=== PATIENT | male | born 1990 | race Caucasian/White ===

== ENCOUNTER 2022-03-02 10:24 | Emergency (ER) | payer SELFPAY ==
[2022-03-02 10:24] VITALS: BP 138/79; PULSE 61; RESP 18; TEMP 36.9; O2SAT 100; BMI 29.0
--- NOTE | 2022-03-02 10:47 | HMH.EDUTC ---
[facility] [place] Disposition Clinical Impression: Encounter for screening for COVID-19 Disposition: Home, Self-Care Condition on Discharge: Good Instructions: Preventing the Spread of Coronavirus Discharge Instructions Additional Instructions: Drink plenty of fluids. Take tylenol for pain or fever. Return if you begin to have difficulty breathing. Follow up with your regular doctor. GO TO THE ER FOR ANY WORSENING SYMPTOMS Quarantine until you know the results of your covid-19 test. If it is positive, the health department should call you and give you further instructions about your length of Quarantine and other things. Notify your school or workplace of your results and follow their instructions regarding return to work/school. Referrals: Provider,Referral, [Primary Care Provider] - Time of Disposition: 10:57 Medical Decision Making - Medical Records Medical records reviewed: No: I reviewed the patient's medical records. - Richard Inquiry Pt receiving controlled substance: No Vital Signs: 03/02/22 10:24 03/02/22 11:03 Temperature 98.4 F 98.4 F Temperature Source Oral Oral Pulse Rate 61 Pulse Rate [Right Radial] 61 Respiratory Rate 18 18 Blood Pressure 138/79 Blood Pressure [Right Arm] 138/79 Blood Pressure Mean [Right Arm] 98 Blood Pressure Source Automatic Cuff Blood Pressure Source [Right Arm] Automatic Cuff Blood Pressure Position Sitting Blood Pressure Position [Right Arm] Sitting 02 Sat by Pulse Oximetry 100 Oxygen Delivery Method Room Air Room Air - Lab Data Lab Results 03/02/22 10:34: SARS-CoV-2 (PCR) Not detected, Influenza A Untype (PCR) Not detected, Influenza Type B (PCR) Not detected [facility] [place] HPI - General Stated complaint: covid test Time Seen by Provider: 03/02/22 10:51 Mode of Arrival: Ambulatory Source of Information: Patient Limitations: No Limitations Description of Symptoms (Recalled from Triage Doc. by RN): Pt is here for a PCR Covid test for surgery HEENT Symptoms (Recalled from RN notes): No Resp Symptoms (Recalled from RN notes): No Skin Symptoms (Recalled from RN notes): No MS Symptoms (Recalled from RN notes): No Functional Status (Recalled from RN notes): n/a - History of Present Illness Provider Complaint: He is here to have a covid-19 test done. He has surgery scheduled for one of his fingers at in 3 days and needs this test done to prepare for that. - Related Data Allergies Allergy/AdvReac Type Severity Reaction Status Date / Time No Known Allergies Allergy Verified 03/02/22 10:39 - Worker's Comp Is this a Worker's Comp case?: No [facility] History - Hepatitis A Screen Drug use history?: No High risk sexual behaviors?: No History of sexually transmitted infection?: No Currently employed?: No Childcare worker?: No Do you have indoor plumbing?: Yes Do you have electricity?: Yes Attestation statement:: This patient has been screened for Hepatitis A risk factors. I have reviewed the patient's past medical history: Yes ROS Obtained: Yes All systems reviewed & no additional complaints - Constitutional Constitutional: Reports system reviewed and no additional complaints, except as docu - Eyes Eyes: Reports system reviewed and no additional complaints, except as docu - ENT Ears, Nose, Mouth, and Throat: Reports system reviewed and no additional complaints, except as docu - Cardiovascular Cardiovascular: Reports system reviewed and no additional complaints, except as docu - Respiratory Respiratory: Reports system reviewed and no additional complaints, except as docu - Gastrointestinal Gastrointestingal: Reports: system reviewed and no additional complaints, except as docu Physical Exam - General General appearance: alert, in no apparent distress - Head Head exam: atraumatic, normocephalic, normal inspection - Eye Eye exam: Present: normal appearance, PERRL, EOMI - ENT ENT exam: Present: normal exam, normal or
[2022-03-02 10:55] LABS: Coronavirus 19, PCR Not Detected (NotDetected); Influenza A, PCR Not Detected (NotDetected); Influenza B, PCR Not Detected (NotDetected)
[2022-03-02 11:03] VITALS: BP 138/79; PULSE 61; RESP 18; TEMP 36.9
== END 2022-03-02 11:03 | disposition home or self-care (01) ==
PROVIDERS: Emergency Provider Nurse Practitioner Family
DX: Z11.52 Encounter for screening for COVID-19 (principal)
CPT/HCPCS: 99211; C9803; G0463; U0003; U0005

== ENCOUNTER 2022-08-01 15:20 | Emergency (ER) | payer SELFPAY ==
[2022-08-01 15:40] VITALS: BP 133/74; PULSE 74; RESP 18; TEMP 36.6; O2SAT 99; BMI 30.4
[2022-08-01 15:50] LABS: Adenovirus,PCR Not Detected (NotDetected); Bordetella Pertussis Not Detected (NotDetected); Chlamydophila Pneumoniae, PCR Not Detected (NotDetected); Coronavirus 19, PCR Not Detected (NotDetected); Coronavirus 229E Not Detected (NotDetected); Coronavirus NL63 Not Detected (NotDetected); Coronavirus OC43 Not Detected (NotDetected); Coronovirus HKU1,PCR Not Detected (NotDetected); Human Metapneumovirus Not Detected (NotDetected); Influenza A, PCR Not Detected (NotDetected); Influenza AH1, 2009 Not Detected (NotDetected); Influenza AH1, PCR Not Detected (NotDetected); Influenza AH3,PCR Not Detected (NotDetected); Influenza B, PCR Not Detected (NotDetected); Mycoplasma Pneumoniae, PCR Not Detected (NotDetected); Parainfluenza 1, PCR Not Detected (NotDetected); Parainfluenza 2, PCR Not Detected (NotDetected); Parainfluenza 3, PCR Not Detected (NotDetected); Parainfluenza 4, PCR Not Detected (NotDetected); Respiratory Syncytial Virus Not Detected (NotDetected); Rhinovirus/Enterovirus Not Detected (NotDetected)
--- NOTE | 2022-08-01 16:01 | EXP.UTC ---
Discharge Plan Referrals Follow up/Referrals: Provider,Referral, MD [Primary Care Provider] - See instructions Activity Restrictions/Add. Instructions Additional Instructions/Restrictions: Motrin and tyenol for fever chills and body aches You May check your results on the [facility] My Health Portal Follow up wiht your Family Doctor if needed Return if needed Straight to ER if any life threatening symptoms Clinical Impressions Clinical Impression: Viral syndrome Stand Alone Forms Stand Alone Forms: Work/School Release Instructions Patient Instructions: DI for Viral Syndrome, Coronavirus Disease 2019, Preventing the Spread of Coronavirus Discharge Instructions Discharge ED Provider: Jillian Barcenas [facility] [place] HPI General Stated complaint: covid test, chills, kristine body aches Mode of Arrival: Ambulatory Source of Information: Patient Limitations: No Limitations Time Seen by Provider: 08/01/22 16:01 Description of Symptoms (Recalled from Triage Doc. by RN): PATIENT C/O FEVER, RUNNY NOSE, AND BODY ACHES SINCE YESTERDAY. REQUESTING COVID TEST HEENT Symptoms (Recalled from RN notes): Yes Resp Symptoms (Recalled from RN notes): No Skin Symptoms (Recalled from RN notes): No MS Symptoms (Recalled from RN notes): No Functional Status (Recalled from RN notes): WNL History of Present Illness Provider Complaint: Patient states that he has been having fever, chills and body aches that started yesterday States that he took an at home test and it was positive but the line was faint so he came in to get tested here Related Data Allergies Allergy/AdvReac Type Severity Reaction Status Date / Time No Known Allergies Allergy Verified 03/02/22 10:39 Worker's Comp Is this a Worker's Comp case?: No [facility] Medical History (Updated 08/01/22 @ 16:06 by Jillian Barcenas, [employer]) No significant past medical history Social History (Updated 08/01/22 @ 15:51 by Alla Medrano RN) Smoking Status: Current every day smoker alcohol intake: never current occupational status: other Travel in the last 8 weeks: None ROS Obtained: Yes All systems reviewed & no additional complaints except as documented and Yes Systems reviewed as appropriate & no additional complaints except as documented Constitutional Constitutional: Reports system reviewed and no additional complaints, except as documented, Reports as per HPI, Reports body ache, Reports chills, Reports fatigue and Reports fever(s) Eyes Eyes: Reports system reviewed and no additional complaints, except as documented and Reports as per HPI ENT Ears, Nose, Mouth, and Throat: Reports system reviewed and no additional complaints, except as documented, Reports as per HPI and Reports nasal congestion Cardiovascular Cardiovascular: Reports system reviewed and no additional complaints, except as documented, Reports as per HPI and Denies dyspnea Respiratory Respiratory: Reports system reviewed and no additional complaints, except as documented, Reports as per HPI, Denies shortness of breath and Denies dyspnea Gastrointestinal Gastrointestingal: Reports system reviewed and no additional complaints, except as documented and as per HPI Endocrine Endocrine: Reports fatigue Physical Exam General General appearance: alert and in no apparent distress ENT ENT exam: Present normal exam, normal oropharynx, mucous membranes moist and TM's normal bilaterally Respiratory Respiratory exam: Present normal lung sounds bilaterally; Absent respiratory distress or wheezes Cardiovascular Cardiovascular exam: Present regular rate, normal rhythm and normal heart sounds Neurological Exam Neurological exam: Present alert, oriented X3 and normal gait Medical Decision Making Richard Inquiry Pt receiving controlled substance: No Richard was queried for this patient: No Vital Signs: 08/01/22 15:40 Temperature 97.9 F Temperature Source Oral Pulse Rate [Left Brachial] 74 Respiratory Rate 18 Blood Pressure [Left Arm] 133/7
[2022-08-01 16:10] VITALS: BP 133/74; PULSE 74; RESP 18; TEMP 36.6; O2SAT 99
== END 2022-08-01 16:15 | disposition home or self-care (01) ==
PROVIDERS: Emergency Provider Nurse Practitioner
DX: B34.9 Viral infection, unspecified (principal)
CPT/HCPCS: 87581; 87632; 87798; 99212; C9803; G0463; U0003; U0005

== ENCOUNTER 2024-03-12 10:24 | Emergency (ER) | payer SELFPAY ==
[2024-03-12 10:50] VITALS: BP 135/81; PULSE 62; RESP 19; TEMP 36.7; O2SAT 98; BMI 31.7
--- NOTE | 2024-03-12 11:37 | ED_ITS ---
Discharge Plan Disposition Patient Disposition: Home, Self-Care Condition: Good Prescriptions Prescriptions: New clindamycin HCl 300 mg capsule 300 mg PO Q8H 10 Days Qty: 30 0RF Referrals Follow up/Referrals: Provider,Referral, [Primary Care Provider] - See instructions Activity Restrictions/Add. Instructions Additional Instructions/Restrictions: Call [facility] and make appointment [phone] for further evaluation and treatment You was given list of Doctor that is accepting patients make sure to call and establish care Take medication as prescribed DO not pick or mash on this could make infection worse Clinical Impressions Clinical Impression: Finger problem Instructions Patient Instructions: Clindamycin Discharge ED Provider: Jillian Barcenas [facility] [place] HPI General Stated complaint: right middle finger swollen,fever Mode of Arrival: Ambulatory Source of Information: Patient Limitations: No Limitations Time Seen by Provider: 03/12/24 11:37 Description of Symptoms (Recalled from Triage Doc. by RN): PATIENT C/O SCAB TO RIGHT MIDDLE FINGER AMPUTATION SITE AND POSSIBLY SOMETHING IN THAT FINGER HEENT Symptoms (Recalled from RN notes): No Resp Symptoms (Recalled from RN notes): No Skin Symptoms (Recalled from RN notes): Yes MS Symptoms (Recalled from RN notes): Yes Functional Status (Recalled from RN notes): WNL History of Present Illness Provider Complaint: Patient states that he had surgery on his right middle finger about 2 years ago and he has been having infection in the tip of the finger ever since on and off and last being about month or two ago States that they lanced the finger and got some infection out of it but since he has been having a scabbed area and feels hard worried that something may be in there or that it may be infected again since it is starting to look a little red Related Data Previous Rx's Medication Instructions Recorded clindamycin HCl 300 mg capsule 300 mg PO Q8H 10 days #30 caps 03/12/24 Allergies Allergy/AdvReac Type Severity Reaction Status Date / Time No Known Allergies Allergy Verified 03/02/22 10:39 Worker's Comp Is this a Worker's Comp case?: No [facility] Disclaimer: The information contained in this section may have been updated after the patient was seen, as this information can be updated by other users. Medical History (Updated 03/12/24 @ 12:32 by Jillian Barcenas APRN) No significant past medical history Social History (Updated 08/01/22 @ 16:06 by Jillian Barcenas APRN) Smoking Status: Current every day smoker alcohol intake: never current occupational status: other Travel in the last 8 weeks: None ROS Obtained: Yes All systems reviewed & no additional complaints except as documented and Yes Systems reviewed as appropriate & no additional complaints except as documented Constitutional Constitutional: Reports system reviewed and no additional complaints, except as documented and Reports as per HPI ENT Ears, Nose, Mouth, and Throat: Reports system reviewed and no additional complaints, except as documented and Reports as per HPI Cardiovascular Cardiovascular: Reports system reviewed and no additional complaints, except as documented and Reports as per HPI Respiratory Respiratory: Reports system reviewed and no additional complaints, except as documented and Reports as per HPI Integumentary/Breasts Skin/Breast: Reports system reviewed and no additional complaints, except as documented and Reports as per HPI Comments: scabbing on amputation site of right middle finger with some mild redness no drainage Physical Exam General General appearance: alert and in no apparent distress Respiratory Respiratory exam: Present normal lung sounds bilaterally; Absent respiratory distress or wheezes Cardiovascular Cardiovascular exam: Present regular rate, normal rhythm and normal heart sounds Expanded Upper Extremity Exam Right: Hand L/R front image: 2 1. other (small hard scabbed like area noted, redness noted no drainage) Neurological Exam Neurological exam: Present alert, oriented X3 and normal gait Medical Decision Making Richard Inquiry Pt receiving controlled substance: No Richard was queried for this patient: No Vital Signs: 03/12/24 10:50 Temperature 98.1 F Temperature Source Oral Pulse Rate [Left Brachial] 62 Respiratory Rate 19 Blood Pressure [Left Arm] 135/81 Blood Pressure Mean [Left Arm] 99 Blood Pressure Source [Left Arm] Automatic Cuff Blood Pressure Position [Left Arm] Sitting 02 Sat by Pulse Oximetry 98 Radiology Data #1: Image(s): Hand Image Reviewed: Yes I have reviewed radiologist's interpretation IMPRESSION: Prior amputation of the 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 Uxpi-ki-orlanhwh soft tissue thickening along the tuft of the 3rd distal phalanx, nonspecific, and may be due to inflammation versus postsurgical scarring. No dense foreign body. No acute fracture or significant degenerative changes.
--- NOTE | 2024-03-12 11:43 | XR_ITS ---
PROCEDURE INFORMATION: Exam: XR Right Hand Exam date and time: 03/12/2024 12:02 PM Age: 33 years old Clinical indication: Swelling; Fingers; Right; Prior surgery; Surgery date: 6+ months; Surgery type: Amputation from inj x 2 yrs ago-- PT thinks there is infection; Additional info: Check for fb middle finger TECHNIQUE: Imaging protocol: Radiologic exam of the right hand. Views: 3 or more views. COMPARISON: No relevant prior studies available. 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 Ofeg-um-apflqegf soft tissue thickening along the tuft of the 3rd distal phalanx, nonspecific, and may be due to inflammation versus postsurgical scarring. No dense foreign body. No acute fracture or significant degenerative changes. Soft tissues: See Bones/joints finding. 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 Qixf-sa-xjzkupao soft tissue thickening along the tuft of the 3rd distal phalanx, nonspecific, and may be due to inflammation versus postsurgical scarring. No dense foreign body. No acute fracture or significant degenerative changes.
[2024-03-12 13:00] VITALS: BP 135/81; PULSE 62; RESP 19; TEMP 36.7; O2SAT 98
== END 2024-03-12 13:14 | disposition home or self-care (01) ==
PROVIDERS: Emergency Provider Nurse Practitioner
DX: L08.9 Local infection of the skin and subcutaneous tissue, unspecified (principal); F17.200 Nicotine dependence, unspecified, uncomplicated; R22.31 Localized swelling, mass and lump, right upper limb
CPT/HCPCS: 73130; 99212; 99214; G0463

== ENCOUNTER 2024-07-16 10:55 | Emergency (ER) | payer SELFPAY ==
[2024-07-16 11:10] VITALS: BP 137/83; PULSE 52; RESP 20; TEMP 36.7; O2SAT 100; BMI 29.9
--- NOTE | 2024-07-16 11:46 | ED_ITS ---
Discharge Plan Disposition Patient Disposition: Home, Self-Care Condition: Good Referrals Follow up/Referrals: Provider,Referral, MD [Primary Care Provider] - See instructions Activity Restrictions/Add. Instructions Additional Instructions/Restrictions: You were evaluated in the emergency department today. Please use the ointment provided to you 4 times a day for the next 5 days or until instructed otherwise by ophthalmology/optometry. I recommend seeing an eye doctor over the next 24 hours. You may choose to follow-up with whomever you would like, but we often send people to Dr. Estrella, whose information is below. Take Tylenol and ibuprofen every 4-6 hours at home as needed for pain. Return to the emergency department for new or worsening symptoms. Dr. Bj Estrella [phone] Clinical Impressions Clinical Impression: Metal foreign body in eye region, Corneal rust ring of left eye Stand Alone Forms Stand Alone Forms: Work/School Release Instructions Patient Instructions: DI for Corneal Abrasion, DI for Eye Pain, DI for Corneal Foreign Body-Eye Print Language Print Language: Indonesian Discharge ED Provider: Kristy Lawson [facility] General Chief complaint: Eye Problems Stated complaint: AO 07/15 1000, left eye pain Mode of Arrival: Ambulatory Source of Information: Patient Limitations: No Limitations Time Seen by Provider: 07/16/24 11:46 Description of Symptoms (Recalled from Triage Doc. by RN): PATIENT STATES HE THINKS HE GOT SOMETHING IN HIS EYE YESTERDAY MORNING HEENT Symptoms (Recalled from RN notes): Yes Resp Symptoms (Recalled from RN notes): No Skin Symptoms (Recalled from RN notes): No MS Symptoms (Recalled from RN notes): No Functional Status (Recalled from RN notes): WNL History of Present Illness Provider Complaint: Patient states that he was working on a car yesterday when some debris fell and hit him in his left eye States that since then he feels like something is in there States that he has flushed his eye several times but doesnt feel like he could get it out Related Data Allergies Allergy/AdvReac Type Severity Reaction Status Date / Time No Known Allergies Allergy Verified 07/16/24 12:10 Worker's Comp Is this a Worker's Comp case?: No [facility] Disclaimer: The information contained in this section may have been updated after the patient was seen, as this information can be updated by other users. Medical History No significant past medical history Social History Smoking Status: Current every day smoker alcohol intake: never current occupational status: other Travel in the last 8 weeks: None ROS Obtained: Yes All systems reviewed & no additional complaints except as documented and Yes Systems reviewed as appropriate & no additional complaints except as documented Constitutional Constitutional: Reports system reviewed and no additional complaints, except as documented and Reports as per HPI Eyes Eyes: Reports system reviewed and no additional complaints, except as documented, Reports as per HPI and Reports other (feeling of FB in left eye with irritation and watering) Physical Exam General General appearance: alert and in no apparent distress Eye Eye exam: Present other (redness, watering noted reports feeling of FB) Respiratory Respiratory exam: Present normal lung sounds bilaterally; Absent respiratory distress or wheezes Cardiovascular Cardiovascular exam: Present regular rate, normal rhythm and normal heart sounds Neurological Exam Neurological exam: Present alert, oriented X3 and normal gait Medical Decision Making Richard Inquiry Pt receiving controlled substance: No Richard was queried for this patient: No Vital Signs: 07/16/24 11:10 Temperature 98.0 F Temperature Source Oral Pulse Rate [Left Brachial] 52 L Respiratory Rate 20 Blood Pressure [Left Arm] 137/83 Blood Pressure Mean [Left Arm] 101 Blood Pressure Source [Left Arm] Automatic Cuff Blood Pressure Position [Left Arm] Sitting 02 Sat by Pulse Oximetry 100 Oxygen Delivery Method Room Air Medical Decision Narrative: Upon doing eye exam with Eye Box noted what appeared to be FB in left eye will transfer patient to the ED for removal patient agreed Patient moved to the ED room 2
[2024-07-16 11:55] VITALS: BP 145/89; PULSE 53; O2SAT 100
[2024-07-16 12:01] VITALS: BP 133/95; PULSE 55; O2SAT 98
[2024-07-16 12:05] VITALS: BP 145/89; PULSE 50; RESP 16; TEMP 36.8; O2SAT 100; BMI 29.8
[2024-07-16 12:30] VITALS: BP 129/90; PULSE 53; O2SAT 98
--- NOTE | 2024-07-16 13:05 | ED_ITS ---
Discharge Plan Disposition Patient Disposition: Home, Self-Care Condition: Good Referrals Follow up/Referrals: Provider,Referral, MD [Primary Care Provider] - See instructions Activity Restrictions/Add. Instructions Additional Instructions/Restrictions: You were evaluated in the emergency department today. Please use the ointment provided to you 4 times a day for the next 5 days or until instructed otherwise by ophthalmology/optometry. I recommend seeing an eye doctor over the next 24 hours. You may choose to follow-up with whomever you would like, but we often send people to Dr. Estrella, whose information is below. Take Tylenol and ibuprofen every 4-6 hours at home as needed for pain. Return to the emergency department for new or worsening symptoms. Clinical Impressions Clinical Impression: Metal foreign body in eye region, Corneal rust ring of left eye Stand Alone Forms Stand Alone Forms: Work/School Release Instructions Patient Instructions: DI for Corneal Abrasion, DI for Eye Pain, DI for Corneal Foreign Body-Eye Print Language Print Language: Ivorian Discharge ED Provider: Kristy Lawson General Adult HPI General Chief complaint: Eye Problems Stated complaint: AO 07/15 1000, left eye pain Time Seen by Provider: 07/16/24 11:46 Mode of Arrival: Ambulatory Source of Information: Patient Limitations: No Limitations Description of Symptoms (Recalled from ER Triage Doc. 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 pt states his pain was a 6/10 prior to the tetracaine drops put in while at the [facility], now it is a 0/10. pt reports his last tetnus vaccine was in 2021. History of Present Illness HPI narrative: This patient is a 34-year-old male presenting to the emergency department from [facility] for evaluation with concern for foreign body in his left eye. Patient reports that 2 days ago he was working on a car when debris fell into his eye. Yesterday morning, he woke up with eye irritation and foreign body sensation. He had previously had a foreign body in his other eye in the past, so he knew to come in to get evaluated. No visual disturbance or other concerns noted. His last tetanus shot was 2021. I had an interactive discussion with the urgent treatment center provider who advised that the patient initially came there, and she stain his eye and saw an abrasion but was concerned for foreign body, so she wanted to send him over for further evaluation. patient does not wear contact lenses Related Data Allergies Allergy/AdvReac Type Severity Reaction Status Date / Time No Known Allergies Allergy Verified 07/16/24 12:10 [facility] Disclaimer: The information contained in this section may have been updated after the patient was seen, as this information can be updated by other users. Medical History No significant past medical history Social History Smoking Status: Current every day smoker alcohol intake: never current occupational status: other Travel in the last 8 weeks: None ROS Obtained: Yes All systems reviewed & no additional complaints except as documented Physical Exam General General appearance: alert and in no apparent distress Head Head exam: atraumatic and normocephalic Eye Eye exam: Present PERRL, EOMI, conjunctival redness and conjunctival injection Expanded Eye Exam Slit lamp exam: performed Eyelids: bilateral: normal inspection Pupils: Bilateral: regular, round Sclera/Conjunctival: left: injection and foreign body Both Eyes Image: 2 1. Small metallic foreign body with rust ring IOP (L) in mmH ENT ENT exam: Present normal exam, normal oropharynx, mucous membranes moist and normal external ear exam Neck Neck exam: Present normal inspection, full ROM and trachea midline; Absent tenderness Chest Chest inspection: Present normal inspection and symmetric chest wall rise; Absent tenderness Respiratory Respiratory exam: Present normal lung sounds bilaterally; Absent respiratory distress, wheezes, stridor or accessory muscle use Cardiovascular Cardiovascular exam: Present regular rate and normal rhythm Abdominal Exam Abdominal exam: Present soft; Absent distention, tenderness or guarding Extremities Exam Extremities exam: Present normal inspection, full ROM and normal capillary refill; Absent tenderness or edema Back Exam Back exam: Present normal inspection and full ROM; Absent tenderness Neurological Exam Neurological exam: Present alert, oriented X3, CN II-XII intact and normal gait; Absent motor sensory deficit Psychiatric Psychiatric exam: Present normal affect and normal mood Skin Skin exam: Present warm and dry Medical Decision Making Medical Records Medical records reviewed: Yes I reviewed the patient's medical records. Richard Inquiry Pt receiving controlled substance: No Vital Signs: 07/16/24 11:10 07/16/24 11:55 07/16/24 12:01 Temperature 98.0 F Temperature Source Oral Pulse Rate 53 L 55 L Pulse Rate [Left Brachial] 52 L Respiratory Rate 20 Blood Pressure 145/89 H 133/95 H Blood Pressure [Left Arm] 137/83 Blood Pressure Mean [Left Arm] 101 Blood Pressure Source [Left Arm] Automatic Cuff Blood Pressure Position [Left Arm] Sitting 02 Sat by Pulse Oximetry 100 100 98 Oxygen Delivery Method Room Air 07/16/24 12:05 07/16/24 12:30 Temperature 98.2 F Temperature Source Oral Pulse Rate 53 L Pulse Rate [Left Brachial] 50 L Respiratory Rate 16 Blood Pressure 129/90 Blood Pressure [Left Arm] 145/89 H Blood Pressure Mean [Left Arm] 107 Blood Pressure Source [Left Arm] Blood Pressure Position [Left Arm] 02 Sat by Pulse Oximetry 100 98 Oxygen Delivery Method Lab Data Lab results reviewed: Yes I reviewed the patient's lab results. Orders (Tests/Meds): ED MEDICATIONS Discontinued Medications Generic Name Dose Route Start Last Admin Trade Name Freq PRN Reason Stop Dose Admin Erythromycin 1 gm 07/16/24 12:59 Erythromycin Base 1 Gm Oint...G. OP 07/16/24 13:00 ONCE ONE Fluorescein Sodium 1 mg 07/16/24 12:59 Fluorescein Sodium 1mg Strip OP 07/16/24 13:00 ONCE ONE Tetracaine HCl 0 ml 07/16/24 12:59 Tetracaine 0.5% Opth Oralia 15ml OP 07/16/24 13:00 ONCE ONE Medical Decision Narrative: In summary, this patient is a 34-year-old male presenting to the Emergency Department for evaluation of foreign body sensation of the left. Differential diagnoses considered include but are not limited to foreign body, rust ring, ulceration, abrasion. Ruling out the most morbid conditions drove assessment. On exam, the patient is well-appearing. He has left conjunctival injection and irritation as well as a foreign body noted in the left eye with rust ring. He also has small corneal abrasion. Negative Nancy sign. Vision normal. After informed consent was obtained, patient consented to foreign body removal of the left eye. This was done with a 25-gauge needle. Foreign body was removed successfully and small fragmented pieces x 3, but a residual rust ring remained. I was not able to fully remove it. Pressure was checked and is normal. Nancy sign remain negative. Ultimately, given the residual rust ring I feel he would benefit from ophthalmology/optometry follow-up in the next 24 hours. He was given instructions for this. He was provided with erythromycin ointment and instructions for use 4 times a day over the next 5 days or until instructed otherwise by ophthalmology/optometry. Ultimately given we successfully remove the foreign body, I feel the patient is appropriate for discharge home with close outpatient follow-up. Strict return precautions were given. He was not given Tdap booster, as he is already up-to-date within the last 2 years. Procedures Risk/Benefits of Procedure(s) Were Explained: Yes Foreign Body Removal Time Out Performed: Yes Site: left (eye) Description of foreign body: other (piece of metal) Sedation/Analgesia: other (topical tetracaine) Technique: other (removal with 25 gauge needle under slit lamp exam) Confirmed by:: direct visualization Complications: none Post-procedure exam: awake, alert, normal BP, normal HR and normal O2 sat Neurovascular: no change from pre-procedure Critical Care Critical Care Time Critical Care Time: No
[2024-07-16] MEDS: TETRACAINE 0.5% OPTH SOL 15ML OP (13:10)
[2024-07-16] MEDS: FLUORESCEIN SODIUM 1MG STRIP 1 MG OP (13:11)
[2024-07-16] MEDS: ERYTHROMYCIN BASE 1 GM OINT...G. OP (13:11)
[2024-07-16 13:13] VITALS: BP 129/90; PULSE 52; RESP 16; TEMP 36.8
== END 2024-07-16 13:15 | disposition home or self-care (01) ==
LOC: UTC 11:04 → ER 11:49
PROVIDERS: Emergency Provider Emergency Medicine
DX: S05.02XA Injury of conjunctiva and corneal abrasion without foreign body, left eye, initial encounter (principal); S00.252A Superficial foreign body of left eyelid and periocular area, initial encounter; H16.022 Ring corneal ulcer, left eye; W44.E9XA Other non-magnetic metal objects entering into or through a natural orifice, initial encounter
CPT/HCPCS: 65220; 99283

== ENCOUNTER 2025-05-28 17:19 | Emergency (ER) | payer SELFPAY ==
--- NOTE | 2025-05-28 17:44 | XR_ITS ---
PROCEDURE INFORMATION: Exam: XR Left Shoulder Exam date and time: 05/28/2025 5:43 PM Age: 34 years old Clinical indication: Pain; Shoulder; Left TECHNIQUE: Imaging protocol: Radiologic exam of the left shoulder. Views: 2 or more views. COMPARISON: No relevant prior studies available. FINDINGS: Bones/joints: Normal. Soft tissues: Normal. IMPRESSION: No acute findings.
--- OUTSIDE RECORDS SUMMARY | 2025-05-28 17:46 | XMS_ITS | Clinical Summary ---
Author Organization Healthcare Address [address] [place] [address] Care Team Providers Care Research Technologist Name Role Phone Pcp, No Primary Care Provider Unavailabl e Allergies No known active allergies Medications oxyCODONE-acetam inophen (Lynox) 10-300 MG tablet Take 1 tablet by mouth every 6 (six) hours if needed. Active cephalexin (Keflex) 250 MG capsule Take 250 mg by mouth 4 (four) times a day. 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 Overview (02/27/2022): Added automatically from request for surgery [id number] Social History Tobacco Use Types Packs/Day Years Used Date Smoking Tobacco: Every Day Cigarettes 0.3 20 Smokeless Tobacco: Never Alcohol Use Standard Drinks/Week Comments Not Currently 0 (1 standard drink = 0.6 oz pur e alcohol) Sex and Gender Information Value Date Recorded Sex Assigned at Not on file Legal Sex Male 12:53 PM EDT Gender Identity Not on file Sexual Orientation Not on file Last Filed Vital Signs Vital Sign Reading Time Taken Comments Blood Pressure 134/81 03/06/2022 3:45 PM EDT Pulse 62 03/06/2022 3:45 PM EDT Temperature 36.3 C (97.4 F) 03/06/2022 3:15 PM EDT Respiratory Rate 13 03/06/2022 3:45 PM EDT Oxygen Saturation 97% 03/06/2022 3:45 PM EDT Inhaled Oxygen Concentration - - Weight 97.1 kg (214 lb) 03/06/2022 12:59 PM EDT Height 182.9 cm (6') 03/06/2022 12:59 PM EDT Body Mass Index 29.02 03/06/2022 12:59 PM EDT Plan of Treatment Health Maintenance Due Date Last Done Comments [facility]-Depression Screening 1990 [facility]-/Child/Adol SDOH Screenings 1990 [facility]-Varicella Vaccines (1 of 2 - 13+ 2-dose series) 2003 HPV Vaccines (1 - Male 3-dos e series) 2005 [facility]- SDOH Screenings 2008 [facility]-Adult SDOH Screenings 2008 [facility]-DTaP,Tdap,and Td Vaccine s (1 - Tdap) 2009 [facility]-Hepatitis B Vaccines (1 of 3 - 19+ 3-dose series) 2009 [id number] Vaccine (1 - 20 24-25 season) 2024 [facility]-Influenza Vaccine (Seaso n Ended) 2025 [facility]-Zoster Vaccines (1 of 2) 2040 [facility]-HIB Vaccines Aged Out No longer e ligible based on patient's age to complete this topic [facility]-Hepatitis A Vaccines Aged Out No longer eligible based on patient's age to complete this topic [facility]-IPV Vaccines Aged Out No longer e ligible based on patient's age to complete this topic [facility]-Pneumococcal Vaccine: Pediatrics (0 to 5 Years) and At-Risk Patients (6 to 49 Years) Aged Out No long er eligible based on patient's age to complete this topic [facility]-Rotavirus Vaccines Aged Out No lo nger eligible based on patient's age to complete this topic Insurance [employer] [id number] [address] [id number] Care Teams Research Technologist Relationship Specialty Start Date End Date Pcp, [place] [address] PCP - General Family Medicine 02/27/22
[2025-05-28 17:48] VITALS: BP 135/95; PULSE 69; RESP 16; TEMP 36.9; O2SAT 100; BMI 31.1
--- NOTE | 2025-05-28 17:49 | HMH.EDGENADL ---
Discharge Plan Disposition Patient Disposition: Home, Self-Care Prescriptions Prescriptions: New prednisone 20 mg tablet 20 mg PO BID 7 Days Qty: 14 0RF cyclobenzaprine 10 mg tablet 10 mg PO Q8H Qty: 30 0RF Referrals Follow up/Referrals: Provider,Referral, [Primary Care Provider, Medical] - See instructions Clinical Impressions Clinical Impression: Muscle spasm, Acute shoulder pain Instructions Patient Instructions: DI for Shoulder Pain, DI for Back Spasm Print Language Print Language: Indonesian Discharge ED Provider: Abel Fisher General Adult HPI <Savanna Jonas (ED), BARREL LATHE OPERATOR INSIDE - Last Filed: 05/28/25 18:59> General Chief complaint: Extremity Injury, Upper Stated complaint: Left shoulder pain Time Seen by Provider: 05/28/25 17:22 History of Present Illness HPI narrative: 34-year-old male presents to the ED today for complaint of left shoulder pain that started 2 weekends ago. He says he was doing normal things and woke up with the left shoulder pain. He says sometimes it hurts when he lifts that sometimes he hurts just to move it. He says it hurts more in the top of the shoulder and the muscle. He says he took some ibuprofen and it helped some but not too much. 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 He complains of pain 7-1/2 out of 10. No numbness or tingling. No other symptoms. Related Data Previous Rx's ?Medication ?Instructions ?Recorded cyclobenzaprine 10 mg tablet 10 mg PO Q8H #30 tabs 05/28/25 prednisone 20 mg tablet 20 mg PO BID 7 days #14 tabs 05/28/25 Allergies Allergy/AdvReac Type Severity Reaction Status Date / Time No Known Allergies Allergy Verified 07/16/24 12:10 PFSH <Savanna Jonas (ED), BARREL LATHE OPERATOR INSIDE - Last Filed: 05/28/25 18:59> PFS Disclaimer: The information contained in this section may have been updated after the patient was seen, as this information can be updated by other users. Medical History No significant past medical history Social History Smoking Status: Current every day smoker alcohol intake: never current occupational status: other Travel in the last 8 weeks?: None Have you lived/traveled outside US in past 30 days?: No Contact w/someone who lives/traveled outside US past 30 days?: No Exposure to someone with infectious disease in past 14 days?: No Do you have a fever (greater than 100.4 F or 38 C)?: No Have you tested positive for COVID-19?: No Exposed to someone with COVID-19 in past 14 days?: No Do you have a sore throat?: No Do you have a cough?: No Do you have any weakness?: No Do you have any diarrhea?: No Are you experiencing any unusual bleeding?: No Do you have any muscle aches/pain?: No Do you have any abdominal pain?: No Are you experiencing loss of taste or smell?: No <Savanna Jonas (ED), BARREL LATHE OPERATOR INSIDE - Last Filed: 05/28/25 18:59> ROS Obtained: Yes Systems reviewed as appropriate & no additional complaints except as documented Constitutional Constitutional: Reports as per HPI Physical Exam <Savanna Jonas (ED), BARREL LATHE OPERATOR INSIDE - Last Filed: 05/28/25 18:59> General General appearance: alert and in no apparent distress Head Head exam: normocephalic Eye Eye exam: Present normal appearance, PERRL and EOMI ENT ENT exam: Present normal oropharynx and mucous membranes moist Neck Neck exam: Present full ROM and trachea midline Respiratory Respiratory exam: Present normal lung sounds bilaterally Cardiovascular Cardiovascular exam: Present regular rate, normal rhythm, normal heart sounds, +S1 and +S2 Abdominal Exam Abdominal exam: Present soft and normal bowel sounds Extremities Exam Extremities exam: Present normal inspection, full ROM and normal capillary refill Neurological Exam Neurological exam: Present alert, oriented X3 and normal gait Skin Skin exam: Present warm, dry and intact Medical Decision Making <Savanna Jonas (ED), BARREL LATHE OPERATOR INSIDE - Last Filed: 05/28/25 18:59> Medical Records Screening: Per USPSTF and CDC recommendations, given the prevalence of disease in our region, it is our hospital?s policy to screen for HIV and viral Hepatitis for all patients aged 18 and over and those with ongoing risk factors. Richard Inquiry Pt receiving controlled substance: No Vital Signs: 05/28/25 17:48 05/28/25 18:00 05/28/25 18:30 Temperature 98.5 F Temperature Source Oral Pulse Rate 63 61 Pulse Rate [Right Brachial] 69 Respiratory Rate 16 18 Blood Pressure 128/89 126/91 H Blood Pressure [Right Arm] 135/95 H Blood Pressure Mean 101 Blood Pressure Mean [Right Arm] 108 Blood Pressure Source [Right Arm] Automatic Cuff Blood Pressure Position [Right Arm] Sitting 02 Sat by Pulse Oximetry 100 99 100 Oxygen Delivery Method Room Air Orders (Tests/Meds): ED MEDICATIONS Discontinued Medications Generic Name Dose Route Start Last Admin Trade Name Olvin PRN Reason Stop Dose Admin Hydrocodone Bitart/Acetaminophen 2 tab 05/28/25 17:44 05/28/25 17:57 Hydrocodone/Apap 5/325 Mg Tablet PO 05/28/25 17:45 2 tab ONCE ONE Administration Orphenadrine Citrate 60 mg 05/28/25 17:44 05/28/25 17:57 Orphenadrine Citrate 60mg/2ml Vial IM 05/28/25 17:45 60 mg ONCE ONE Administration ORDERS Category Date Time Status Shoulder XR left minimum 2 views [XR shoulder LT min 2V Exams 05/28/25 17:44 Completed ] Stat Medical Decision Narrative: patient is a 34-year-old male presenting to the emergency department for evaluation of left shoulder pain that he woke up with 2 weeks ago. He has no trauma to the area but he believes that he may have pulled a muscle. Patient is hemodynamically stable and nontoxic-appearing upon arrival, afebrile. Differential diagnosis includes pulled muscle, rotator cuff sprain or strain, trauma, among others. Workup will be conducted with specific imaging including shoulder x-ray. I considered a CT but without trauma. Did a plain film for now. Initial inventions include Norflex and pain medicine. Imaging informally interpreted by me and remarkable for nothing acute. Formal imaging read remarkable for nothing acute. Read by Dr. Fisher. Upon repeat evaluation patient's pain is improved. Patient and I discussed having him follow-up with PCP to do physical therapy and possibly further imaging including an MRI. Patient is fine with this plan. Patient is safe for discharge home. <Abel Fisher MD - Last Filed: 05/28/25 19:18> Vital Signs: 05/28/25 17:48 05/28/25 18:00 05/28/25 18:30 Temperature 98.5 F Temperature Source Oral Pulse Rate 63 61 Pulse Rate [Right Brachial] 69 Respiratory Rate 16 18 Blood Pressure 128/89 126/91 H Blood Pressure [Right Arm] 135/95 H Blood Pressure Mean 101 Blood Pressure Mean [Right Arm] 108 Blood Pressure Source [Right Arm] Automatic Cuff Blood Pressure Position [Right Arm] Sitting 02 Sat by Pulse Oximetry 100 99 100 Oxygen Delivery Method Room Air Orders (Tests/Meds): ED MEDICATIONS Discontinued Medications Generic Name Dose Route Start Last Admin Trade Name Olvin PRN Reason Stop Dose Admin Hydrocodone Bitart/Acetaminophen 2 tab 05/28/25 17:44 05/28/25 17:57 Hydrocodone/Apap 5/325 Mg Tablet PO 05/28/25 17:45 2 tab ONCE ONE Administration Orphenadrine Citrate 60 mg 05/28/25 17:44 05/28/25 17:57 Orphenadrine Citrate 60mg/2ml Vial IM 05/28/25 17:45 60 mg ONCE ONE Administration ORDERS Category Date Time Status Shoulder XR left minimum 2 views [XR shoulder LT min 2V Exams 05/28/25 17:44 Completed ] Stat Medical Decision Narrative: patient is a 34-year-old male presenting to the emergency department for evaluation of left shoulder pain that he woke up with 2 weeks ago. He has no trauma to the area but he believes that he may have pulled a muscle. Patient is hemodynamically stable and nontoxic-appearing upon arrival, afebrile. Differential diagnosis includes pulled muscle, rotator cuff sprain or strain, trauma, among others. Workup will be conducted with specific imaging including shoulder x-ray. I considered a CT but without trauma. Did a plain film for now. Initial inventions include Norflex and pain medicine. Imaging informally interpreted by me and remarkable for nothing acute. Formal imaging read remarkable for nothing acute. Read by Dr. Fisher. Upon repeat evaluation patient's pain is improved. Patient and I discussed having him follow-up with PCP to do physical therapy and possibly further imaging including an MRI. Patient is fine with this plan. Patient is safe for discharge home. I was consulted by the YANELY, and we discussed the complexity of the problems being addressed. I approved the treatment and management plan for this patient's care in the Emergency Department, thus performing a substantive portion of the medical decision making. Abel Fisher MD Critical Care <Savanna Jonas (ED), BARREL LATHE OPERATOR INSIDE - Last Filed: 05/28/25 18:59> Critical Care Time Critical Care Time: No
[2025-05-28] MEDS: HYDROCODONE/APAP 5/325 MG TABLET 2 TAB PO (17:57)
[2025-05-28] MEDS: ORPHENADRINE CITRATE 60MG/2ML VIAL 60 MG IM (17:57)
[2025-05-28 18:00] VITALS: BP 128/89; PULSE 63; O2SAT 99
[2025-05-28 18:30] VITALS: BP 126/91; PULSE 61; RESP 18; O2SAT 100
[2025-05-28 19:00] VITALS: BP 119/89; PULSE 58; O2SAT 99
[2025-05-28 19:30] VITALS: BP 119/86; PULSE 57; O2SAT 99
[2025-05-28 19:40] VITALS: BP 119/86; PULSE 57; RESP 16; TEMP 36.9; O2SAT 99
== END 2025-05-28 19:41 | disposition home or self-care (01) ==
PROVIDERS: Emergency Provider Emergency Medicine
DX: M25.512 Pain in left shoulder (principal); M62.838 Other muscle spasm
CPT/HCPCS: 73030; 96372; 99283; J2360